=== PATIENT | female | born 2005 | race Two or more races ===

== ENCOUNTER 2024-07-16 15:10 | Emergency (ER) | payer MEDICAID, OTHER ==
[~2024-07-16] VITALS: Ht 165.1 cm; Wt 100.0 kg
--- NOTE | 2024-07-16 15:24 | ED.PDOC ---
GI ASSESSMENT HPI Comments 19 year old female brought in by EMS presents to the ED with the chief complaint of intermittent abdominal pain onset 7 months. Per EMS, patient has been experiencing intermittent abdominal pain for the past 7 months, since she gave . Patient was sitting on the floor when she began experiencing dizziness, nausea, vomiting, near syncopal episode. Per EMS, patient experienced an episode of hematemesis, about 4 oz of blood. Patient was scheduled for an outpatient CT scan, was not able to make it. She took an at home test 2 days ago, was positive. Denies any PMHx as well as chest pain, shortness of breath, headache, blurry vision, diarrhea, fever, chills. No other symptoms or modifying factors present at this time. Time Seen by MD: 15:14 Reviewed Notes: Medications, Allergies Allergies: Coded Allergies: NO KNOWN ALLERGIES (Unverified , 07/16/24) Information Source: Patient, Emergency Med Personnel Mode of Arrival: EMS Timing: Months Duration: Since onset Prehospital treatment: IVF Quality: Sharp Vomitus: Bloody Severity: Moderate Recent: None Recent Hx of: Current Pain Location: Diffuse Modifying Factors: Nothing Associated sign and symptoms: Nausea, Vomiting, Abdominal Pain Past Medical History PAST MEDICAL HISTORY: Denies Surgical History: Denies all surgeries CUSTODIAN MANAGER History: No Pertinent CUSTODIAN MANAGER History Family History Family History: Reviewed,noncontributory to illness, No family hx of Cancer, No family hx of DM, No family hx of Heart evan, No family hx of HTN, No family hx ofKidney evan, No family hx of Liver evan, No family hx of Lung evan, No family hx of Stroke Social History Smoker: Non-Smoker Alcohol: Denies ETOH Use Drugs: Denies Drug Use Lives In: Home Constitutional: denies: chills, diaphoresis, fatigue, fever, malaise, sweats, weakness, others EENTM: denies: blurred vision, double vision, ear bleeding, ear discharge, ear drainage, ear pain, ear ringing, eye pain, eye redness, hearing loss, mouth pain, mouth swelling, nasal discharge, nose bleeding, nose congestion, nose tabatha n, photophobia, tearing, throat pain, throat swelling, voice changes, others Respiratory: denies: cough, hemoptysis, orthopnea, SOB at rest, shortness of breath, SOB with excertion, stridor, wheezing, others Cardiovascular: denies: chest pain, dizzy spells, diaphoresis, Dyspnea on exertion, edema, irregular heart beat, left arm pain, lightheadedness, palpitations, PND, syncope, others Gastrointestinal: reports: abdominal pain, hematemesis, nausea, vomiting; denies: abdomen distended, blood streaked bowels, constipated, diarrhea, dysphagia, difficulty swallowing, melena, poor appetite, poor fluid intake, rectal bleeding, rectal pain, others Genitourinary: reports: ; denies: abnormal vagina bleeding, burning, dyspareunia, dysuria, flank pain, frequency, hematuria, incontinence, pain, vagina discharge, urgency, others Neurological: reports: others (near syncope ); denies: dizziness, fainting, headache, left sided numbness, left sided weakness, numbness, paresthesia, pre- existing deficit, right sided numbness, right sided weakness, seizure, speech problems, tingling, tremors, weakness Musculoskeletal: denies: back pain, gout, joint pain, joint swelling, muscle pain, muscle stiffness, neck pain, others Integumetry: denies: bruises, change in color, change in hair/nails, dryness, laceration, lesions, lumps, rash, wounds, others Allergic/Immunocompromised: denies: Difficulty Healing, Frequent Infections, Hives, Itching, others Hematologic/Lymphatic: denies: anemia, blood clots, easy bleeding, easy bruising, swollen glands, others Endocrine: denies: excessive hunger, excessive sweating, excessive thirst, excessive urination, flushing, intolerance to cold, intolerance to heat, unexplained weight gain, unexplained weight loss, others Psychiatric: denies: anxiety, bipolar disorder, depression, hopeless, panic disorder, schizophrenia, sleepless, suicidal, others All Other Systems: Reviewed and Negative Physical Exam General Appearance: Moderate Distress, Normal HEENT: Normal ENT Inspection, Pharynx Normal, TMs Normal Neck: Full Range of Motion, Non-Tender, Normal, Normal Inspection Respiratory: Chest Non-Tender, Lungs Clear, No Accessory Muscle Use, No Respiratory Distress, Normal Breath Sounds Cardiovascular: No Edema, No JVD, No Murmur, No Gallop, Normal Peripheral Pulses, Regular Rate/Rhythm Breast Exam: Deferred Gastrointestinal: No Organomegaly, Non Tender, No Pulsatile Mass, Normal Bowel Sounds, Soft Genitalia: Deferred Pelvic: Deferred Rectal: Deferred Extremities: No calf tenderness, Normal capillary refill, Normal inspection, Normal range of motion, Non-tender, No pedal edema Musculoskeletal : Apperance: Normal Neurologic: Alert, donor recruitment manager II-XII nml as Tested, No Motor Deficits, Normal Affect, Normal Mood, No Sensory Deficits Cerebellar Function: NOT DONE Reflexes: NOT DONE Skin: Dry, Normal Color, Warm Peripheral Pulses: 3+ Radial (R), 3+ Radial (L) Lymphatic: No Adenopathy Was a procedure done? Was a procedure done?: No GI differential Dx Differential Diagnosis: Constipation, Diverticular disease, Esophagitis, Gastritis/PUD, Gastroenteritis X-Ray, Labs, Meds, VS Vital Signs Date Time Temp Pulse Resp B/P (MAP) Pulse Ox O2 Delivery O2 Flow Rate FiO2 07/16/24 15:52 128 07/16/24 15:19 98.2 121 18 118/76 (90) 98 98.2 Lab Test 07/16/24 15:35 Range/Units White Blood Count 19.7 H 4.4-10.8 10^3/uL Red Blood Count 4.93 4.0-5.20 10^6/uL Hemoglobin 12.8 12.2-16.2 g/dL Hematocrit 39.8 36.0-46.0 % Mean Corpuscular Volume 80.7 80.0-100.0 fL Mean Corpuscular Hemoglobin 25.9 L 28.0-32.0 pg Mean Corpuscular Hemoglobin Concent 32.1 32.0-36.0 g/dL Red Cell Distribution Width 15.4 H 11.8-14.3 % Platelet Count 399 140-450 10^3/uL Mean Platelet Volume 7.5 6.9-10.8 fL Neutrophils (%) (Auto) 87.1 H 37.0-80.0 % Lymphocytes (%) (Auto) 8.0 L 10.0-50.0 % Monocytes (%) (Auto) 4.3 0.0-12.0 % Eosinophils (%) (Auto) 0.1 0.0-7.0 % Basophils (%) (Auto) 0.5 0.0-2.0 % Neutrophils # (Auto) 17.1 H 1.6-8.6 10 ^3/uL Lymphocytes # (Auto) 1.6 0.4-5.4 10 ^3/uL Monocytes # (Auto) 0.9 0-1.3 10 ^3/uL Eosinophils # (Auto) 0 0-0.8 10 ^3/uL Basophils # (Auto) 0.1 0-0.2 10 ^3/uL Nucleated Red Blood Cells 0.0 % Beta HCG, Quantitative 878.7 H 1.5-4.2 mIU/mL Current Medications Medications (Trade) Dose Ordered Sig/Jayashree Route Start Time Stop Time Status Last Admin Sodium Chloride 1,000 ml @ 1,000 mls/hr Q1H ONCE IV 07/16/24 15:30 07/16/24 16:29 DC 07/16/24 16:36 Patient alert. Came in because of possible near-syncope. States that she is feeling much better. Vitals stable. Heart rate slightly higher than normal. Possible dehydration. Establish intravenous access. Was given fluids. States that she may be . Abdomen is soft nontender. Explained to the patient. Continue cardiac monitoring. WBC elevated. Risk and benefits explained to the patient. Was given Rocephin. Penicillin safe in . No abdominal cramping. Spoke with our OBGYN. Spoke with Cesar Davila physician. Will be transferred for higher level of care. Sepsis protocol. She was given only one antibiotic rather than to because of her . Need to know the source prior to giving another antibiotic. Fluids. Time of 1ST Reevaluation: 15:44 Reevaluation 1ST: Unchanged Patient Education/Counseling: Diagnosis, Treatment, Prognosis Family Education/Counseling: No Family Present Departure 1 Departure Time of Disposition: 15:26 Impression: Primary Impression: Sepsis, unspecified organism Qualified Codes: A41.9 - Sepsis, unspecified organism Additional Impression: Acute cholecystitis Disposition: 02 SHORT TERM HOSPITAL Admit to: Med Surg Condition: Guarded Critical Care Note Critical Care Time?: Yes (90 min-critical care time only) Critical care comment: Sepsis in Stability Stability form required: No Heart Score Heart Score: Heart Score Response (Comments) Value History N/A 0 EKG N/A 0 Age N/A 0 Risk Factors N/A 0 Troponin N/A 0 Total 0 I personally scribed for LEV WILLOUGHBY MD ([email or web address]) on 07/16/24 at 15:23. Electronically submitted by Gloria Meek ([email or web address]). LEV WILLOUGHBY MD Jul 16, 2024 15:23
[2024-07-16] MEDS: diphenhdrAMINE HCL 50 MG/1 ML VL IV ONE (15:30)
[2024-07-16 15:47] LABS: Basophils # (auto) 0.1 10 ^3/uL (0-0.2); Basophils % (auto) 0.5 % (0.0-2.0); Eosinophils # (auto) 0 10 ^3/uL (0-0.8); Eosinophils % (auto) 0.1 % (0.0-7.0); Hematocrit 39.8 % (36.0-46.0); Hemoglobin 12.8 g/dL (12.2-16.2); Lymphocytes # (auto) 1.6 10 ^3/uL (0.4-5.4); Mean Corpuscular Hemoglobin 25.9 pg (28.0-32.0); Mean Corpuscular Hgb Conc. 32.1 g/dL (32.0-36.0); Mean Corpuscular Volume 80.7 fL (80.0-100.0); Monocytes # (auto) 0.9 10 ^3/uL (0-1.3); Monocytes % (auto) 4.3 % (0.0-12.0); Neutrophils # (auto) 17.1 10 ^3/uL (1.6-8.6); Neutrophils % (auto) 87.1 % (37.0-80.0); Platelet Count (auto) 399 10^3/uL (140-450); Red Blood Cells 4.93 10^6/uL (4.0-5.20); Red Cell Distribution Width 15.4 % (11.8-14.3); White Blood Cell 19.7 10^3/uL (4.4-10.8)
[2024-07-16] MEDS: SODIUM CHLORIDE 0.9% 1,000 ML IV ONE ×3 (16:36→20:01)
--- NOTE | 2024-07-16 17:21 | DVH ---
Ultrasound right lower quadrant INDICATION: PAIN Technique: 2-D real-time ultrasound was performed with axial and sagittal images submitted for evalu ation. FINDINGS: Appendix was not identified on this examination. No masses or fluid collections are seen. IMPRESSION: 1. Study nondiagnostic for appendicitis
--- NOTE | 2024-07-16 17:22 | DVH ---
EXAM: US Abdomen Limited, Right Upper Quadrant CLINICAL INDICATION: WBC R/O PATHOLOGY TECHNIQUE: Real-time ultrasound of the right upper quadrant with image documentation. COMPARISON: None FINDINGS: LIVER: Liver measures 15.2 cm. No intrahepatic bile duct dilation. GALLBLADDER: Cholelithiasis and thickened gallbladder wall measuring up to 5.4 mm thick. Findings m ay suggest evolving acute cholecystitis. Negative Boo's sign was reported by the jet pilot. COMMON BILE DUCT: CBD not visualized. PANCREAS: Unremarkable as visualized. RIGHT KIDNEY: Right kidney measures up to 10.9 cm. No stones. No hydronephrosis. OTHER FINDINGS: . . IMPRESSION: Cholelithiasis and thickened gallbladder wall measuring up to 5.4 mm thick. Findings may suggest shannon lving acute cholecystitis.
--- NOTE | 2024-07-16 17:51 | DVH ---
EXAM: US OB ULTRASOUND COMP LESS 14WKS CLINICAL HISTORY: PAIN COMPARISON: None TECHNIQUE: Grayscale, color-flow Doppler, and spectral Doppler ultrasound of the pelvis is performed by transabdominal and transvaginal technique. Findings: Quantitative beta HCG 878. No visualized intrauterine gestational sac. Uterus measures 8.9 x 6.0 x 4.7 cm in size. The endometrium measures 2.0 cm in thickness. Adjacent hy poechoic structure measuring 2.1 x 1.9 x 1.4 cm with echogenic foci peripherally. Cervical os appears closed. No evidence of subchorionic hemorrhage. Right ovary measures 2.5 x 2.3 x 2.7 cm. Left ovary measures 4.6 x 2.0 x 3.1 cm. Normal ovarian color Doppler flow bilaterally. Thick walled hypoechoic structures in the bilateral ovaries. Mild free fluid within the cul-de-sac. Impression: 1. Thickened endometrium with adjacent hypoechoic structure measuring 2.1 cm with peripheral echogeni c foci. Findings are nonspecific. A molar is in the differential. Recommend short interval follow-up ultrasound and serial quantitative beta HCG. 2. Possible bilateral thecal luteal cysts. 3. Mild free fluid in the cul-de-sac.
[2024-07-16 19:48] VITALS: PULSE 130; RESP 16; O2SAT 96
[2024-07-16] MEDS: MORPHINE SULFATE INJ 2 MG/ml SYRG IV ONE (19:59)
[2024-07-16] MEDS: ONDANSETRON HCL 4 MG/2 ML VIAL IV ONE (19:59)
[2024-07-16] MEDS: cefTRIAXone 1GM/50ML D5W 50 ML IV ONE (20:01)
[2024-07-16 20:29] VITALS: RESP 16
[2024-07-16 21:23] VITALS: BP 119/60; PULSE 115; TEMP 98; O2SAT 96
--- NOTE | 2024-07-17 08:28 | ECG ---
[facility] Test Date: 2024-07-16 Test Time: 15:52:24 Pat Name: SABINE ARMIJO Department: ED Room: Gender: F Refrigeration Unit Repairer: MARYSOL : 2005 Requested By: LEV WILLOUGHBY Order Number: [id number] Reading MD: Kelvin Brady Measurements Intervals [place] Rate: 128 P: 28 VA: 116 QRS: 62 QRSD: 82 T: -5 QT: 306 QTc: 447 Interpretive Statements Sinus tachycardia Borderline T abnormalities, diffuse leads Electronically Signed On 07-19-2024 13:25:16 PDT by Kelvin Brady Please click the below link to view image of tracing.
== END 2024-07-16 21:25 | disposition short-term general hospital (02) ==
LOC: ER 15:10
DX: A41.9 Sepsis, unspecified organism (principal); K81.0 Acute cholecystitis; R11.2 Nausea with vomiting, unspecified
CPT/HCPCS: 36415; 76705; 76801; 76817; 82947; 84702; 85025; 93005; 96361; 96365; 96375; 99291; 99292; J0696; J2270; J2405